=== PATIENT | female | born 1930 | race Caucasian/White ===

== ENCOUNTER 2016-05-06 04:01 | Observation (INO) | payer MEDICARE, BC ==
--- NOTE | ~2016-05-06 | EE ---
Unit #: [id number] #: [id number] Patient: JOSE ALFREDO RIVERA [id number] [address] [address] [id number] I MR#: [id number] NAME: JOSE ALFREDO RIVERA. : 1930 SEX: F STUDY DATE/TIME: 05/06/2016 UNIT: C5B ROOM: 558 STUDY DESCRIPTION: EEG Attending Physician: Shabbir Monae M.D. Referring Physician: Shabbir Monae M.D. Primary Care Physician: Michael Washington D.O. NEURODIAGNOSTICS REPORT EXAM EEG REASON FOR THE STUDY Tremors and hypothermia. EEG DESCRIPTION This is an inpatient, digitally recorded multi-montage adult EEG with leads placed according to the International 10-20 System. Hyperventilation was not done but photic stimulation was attempted. With the patient fully aroused, there is 8-9 Hz posterior dominant alpha rhythm which is symmetric and attenuates with eyes opening. The patient did become drowsy and later on stage 2 sleep was seen. There seemed to be some artifact between T4 and T6, probably maxing out at T4. Throughout the recording, there seemed to be some transients which are worrisome for phase reversing, mostly between T3 and T5. The question is there was artifact on the other side so it is not really sure. Also, they were in transitional stages but definitely some focal irritable foci cannot be absolutely ruled out. Hyperventilation was not done. Photic stimulation was attempted in intermittent stepwise pattern up to the flash frequency of 30 Hz but I did not see any driving, asymmetry or paroxysmal activity. IMPRESSION Very questionable EEG with the possibility of left sided irritable foci. Please clinically correlate with the patient's imaging study and history and go from there. If needed, repeat study may be considered because there was some artifact on the right side. Dictated by... Maurisio Castaneda/kelly Unit #: [id number] #: [id number] Patient: JOSE ALFREDO RIVERA TD: 05/07/2016 07:01 JOB #: [id number] NEURODIAGNOSTICS REPORT X Benjamin Joseph MD NEURODIAGNOSTICS REPORT
--- NOTE | ~2016-05-06 | HP ---
Unit #: [id number] #: [id number] Patient: JOSE ALFREDO RIVERA [id number] [address] [place], [place] [address] [id number] I MR#: [id number] NAME: JOSE ALFREDO RIVERA. ROOM: 89516 Age: 85 Sex: F Admission Date: 05/06/2016 : 1930 Attending Physician: Shabbir Monae M.D. Primary Care Physician: Michael Washington D.O. HISTORY AND PHYSICAL CHIEF COMPLAINT Shaking. 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 She was brought to the emergency room with shaking. The patient stated she was sleeping and got up at 12 o'clock in the morning to go to the bathroom. The patient came back from the bathroom and was not able to sleep secondary to the shaking. It started initially in her upper extremities and then gradually progressed to the lower extremities. The shaking had lasted for more than 30 minutes until the patient came to the emergency room. The patient was found to be hypothermic in the emergency room with a temperature of 96 degrees Fahrenheit. The patient also complains of generalized body pain, mainly in the right chest well under the right breast. The patient also had a fall last and fell on her buttocks, not on the chest. The patient denies any nausea or vomiting. No shortness of breath or abdominal pain. The patient has been admitted for the above reasons. PAST MEDICAL HISTORY 1. History of asthma. 2. Total hip replacement. 3. Anemia. 4. DVTs. PAST SURGICAL HISTORY 1. Hysterectomy. 2. Left hip replacement times two. 3. (1) . 4. Bladder repair. SOCIAL HISTORY The patient lives with her . No history of smoking, alcohol or any illicit drug abuse. FAMILY HISTORY Notable for coronary artery disease. Father had a myocardial infarction. ALLERGIES Opioids, methadone, hydrocodone, codeine, simvastatin, (1) testing. CURRENT MEDICATIONS 1. Coumadin. Unit #: [id number] #: [id number] Patient: JOSE ALFREDO RIVERA 2. Metoprolol. 3. Gabapentin. 4. Diltiazem. 5. Lisinopril. 6. Zolpidem. REVIEW OF SYSTEMS Fourteen point review of systems was performed and only pertinent positive findings are as described above. The remaining are negative. PHYSICAL EXAMINATION GENERAL: The patient is lying on the bed, not in acute distress. VITALS: Temperature at the time of arrival was 96, pulse 62, respiratory rate 15, blood pressure 190/36, oxygen saturation 98% on room air. HEENT: Head atraumatic, normocephalic. Pupils equal and round, reactive to light and accommodation. Extraocular movements are intact. Dry mucous membranes. NECK: Supple. LUNGS: Decreased air entry at the bases. HEART: Regular rate and rhythm. ABDOMEN: Soft. Positive bowel sounds. EXTREMITIES: Positive for trace pedal edema. NEUROLOGIC: Alert, awake and oriented. Decreased range of motion in the extremities. DIAGNOSTIC STUDIES IMAGING: CT of the head shows generalized atrophy, no acute findings. Chest x-ray shows stable cardiomegaly. No acute disease. LABORATORY: Glucose 80, BUN 20, creatinine 0.7, sodium 142, potassium 4.8, chloride 110, bicarb 27, calcium 9.6, amylase 23, lipase 23, BNP 148, ammonia 33, lactic acid 1.1, INR 3.1. White blood cell count 7.4, hemoglobin 12.5, hematocrit 37.6, platelets 263. Flu screen negative. Urinalysis shows trace leukocyte esterase, negative bacteria, negative nitrites. CARDIOVASCULAR: Shows sinus bradycardia at a rate of 55 and p.r.n. interval of 230 with first degree block and QTC 47. ASSESSMENT 1. Hypothermia. 2. Tremors/shakiness. 3. Chest wall pain. PLAN Admit to observation with telemetry. The patient's hypothermia unknown etiology. The patient denies any heating problems at the home. The patient's tremors could be secondary to trazodone that was started recently by primary care physician, Dr. Washington, on Tuesday. The patient denies (2) . We will rule out seizures with EEG and will have neurology consult for any further evaluation. Hold trazodone and hold Coumadin. Repeat labs again in the morning. Continue with pain control. Dictated by Shabbir Monae M.D. Unit #: [id number] #: [id number] Patient: JOSE ALFREDO RIVERA AMA/gz TD: 05/06/2016 11:52 JOB #: [id number] HISTORY AND PHYSICAL X X HISTORY AND PHYSICAL
--- NOTE | ~2016-05-06 | EKG ---
PATIENT: JOSE ALFREDO RIVERA UNIT #: [id number] Ventricular Rate: 55 BPM Atrial Rate: 55 BPM P-R Interval: 230 ms QRS Duration: 82 ms Q-T Interval: 426 ms QTC Calculation(Bezet): 407 ms P [place]: 63 degrees Calculated R [place]: 11 degrees Calculated T [place]: 14 degrees Diagnosis Line: Sinus bradycardia with 1st degree A-V block Diagnosis Line: Low voltage QRS Diagnosis Line: Abnormal ECG Diagnosis Line: No previous ECGs available Diagnosis Line: Confirmed by BENJAMÍN NORTH MD ([id number]) on 05/06/2016 Diagnosis Line: 5:45:52 PM INTERPRETING MD: CAN POZO
--- NOTE | ~2016-05-06 | CR72 ---
[facility] A Service of [facility] RADIOLOGY TEXT RESULTS PATIENT: JOSE ALFREDO RIVERA LOCATION: [facility] 558- : 32 UNIT #: [id number] AGE: [address]: CINDY MCMULLEN MD SEX: F ORDER DR: [id number] [facility] [address] [facility] [place] [facility]. [place], [place] [address] [id number] E MR#: [id number] Acc #: [id number] NAME: JOSE ALFREDO RIVERA. : 1930 SEX: F STUDY DATE/TIME: 05/06/2016 04:29 UNIT: [facility] ROOM: STUDY DESCRIPTION: CR Chest Single View Portable Attending Physician: Stefany Brand M.D. Ordering Physician: Keri Avila M.D. Primary Care Physician: Michael Washington D.O. MEDICAL IMAGING REPORT This report is preliminary unless electronic signature is present EXAM Portable chest 05/06 at 04:29 INDICATIONS Left leg pain with shaking neck pain and lip numbness. Symptoms today. History of hypertension and asthma. FINDINGS AP portable chest is compared with 05/10/2012. Cardiomegaly is stable. Lungs are clear except for granulomatous calcifications. No pneumothorax is seen. Postoperative changes are noted in the right shoulder. IMPRESSION Stable cardiomegaly. No active disease. Dictated by... Michael Sahu Jr., M.D. THIS IS AN ELECTRONICALLY VERIFIED REPORT Michael Sahu Jr., M.D. at 05/06/2016 10:02 PM SHAYLA/penelope TD: 05/06/2016 08:31 JOB #: [id number] MEDICAL IMAGING REPORT COPY
--- NOTE | ~2016-05-06 | CT71 ---
[facility] A Service of [facility] RADIOLOGY TEXT RESULTS PATIENT: JOSE ALFREDO RIVERA LOCATION: [facility] 558-01 : 32 UNIT #: [id number] AGE: [address]: CINDY MCMULLEN MD SEX: F ORDER DR: [id number] [facility] [address] [facility]. [place], [place] [address] [id number] E MR#: [id number] Acc #: [id number] NAME: JOSE ALFREDO RIVERA. : 1930 SEX: F STUDY DATE/TIME: 05/06/2016 05:16 UNIT: TOYIN ROOM: STUDY DESCRIPTION: CT Head Wo Contrast Attending Physician: Stefany Brand M.D. Ordering Physician: Keri Avila M.D. Primary Care Physician: Michael Washington D.O. MEDICAL IMAGING REPORT This report is preliminary unless electronic signature is present EXAM Head CT on 05/06 05:16 INDICATIONS Body shaking that started today with numbness in the left side, weakness and confusion today. This CT exam was performed with one or more of the following radiation dose reduction techniques: automatic exposure control, adjustment of mA and/or kV according to patient size, and iterative reconstruction. FINDINGS Axial images were obtained from base to vertex without contrast. Comparison made with 05/10/2012. There is generalized atrophy. Ventricular size and configuration within normal limits. No acute infarct or hemorrhage is seen. There are no masses. There are no skull fractures. IMPRESSION Generalized atrophy. No acute findings. Dictated by... Michael Sahu Jr., M.D. THIS IS AN ELECTRONICALLY VERIFIED REPORT Michael Sahu Jr., M.D. at 05/06/2016 10:03 PM SHAYLA/penelope TD: 05/06/2016 08:35 JOB #: [id number] MEDICAL IMAGING REPORT [facility] A Service [facility] RADIOLOGY TEXT RESULTS PATIENT: JOSE ALFREDO RIVERA LOCATION: [facility] 558-01 : 32 UNIT #: [id number] AGE: [address]: CINDY MCMULLEN MD SEX: F ORDER DR: FARIBA
--- NOTE | ~2016-05-06 | CO ---
Unit #: [id number] #: [id number] Patient: JOSE ALFREDO RIVERA [id number] [facility]. [place], [place] [address] [id number] I MR#: [id number] NAME: JOSE ALFREDO RIVERA. ROOM: 558 Age: 85 Sex: F Admission Date: 05/06/2016 : 1930 Attending Physician: Oskar Baker M.D. Primary Care Physician: Michael Washington D.O. CONSULTATION REPORT REQUESTING PHYSICIAN Consult is requested per Dr. Monae. REASON FOR CONSULT Bradycardia and some pauses. HISTORY OF PRESENT ILLNESS The patient is an 85-year-old female with a history of DVT secondary to a hypercoagulable state not managed on Coumadin at home, also history of SVT, hypertension, hyperlipidemia, anemia, and mitral valve prolapse. She was brought into the emergency room on May 06, 2016, with complaints of shaking. The patient tells me her initial shaking started in her upper extremities and gradually progressed to the lower extremities. She also had complaints of pain and bilateral lower extremity swelling, which is not normal for her. She did also complain of some dizziness, especially with exertion. She denied chest pain initially but then after further interviewing her she stated that she did have some right-sided pain under her breast that was a sharp and deep pain that radiated all the way through her chest to her back. She had no diaphoresis, no nausea, no vomiting, and no syncope and was mildly short of breath with her chest pain symptoms. Apparently when she was brought to the emergency room, she was found to have a temperature of 96 degrees Fahrenheit. She denies any abdominal pain. No recent flu or fever. No recent change in her weight. PAST MEDICAL HISTORY 1. Anemia. 2. SVT. 3. Mitral valve prolapse. 4. Hypertension. 5. Hyperlipidemia. 6. DVT, managed on Coumadin with labile INRs. PAST SURGICAL HISTORY 1. Hysterectomy. 2. Bilateral hip replacements. 3. Bladder repair. Among other surgeries, she could not list them all. FAMILY HISTORY Includes father who of a OH at the age of 52. SOCIAL HISTORY Unit #: [id number] #: [id number] Patient: JOSE ALFREDO RIVERA She lives with her . She does report decreased tolerance to activity over the last three to four months. She uses a cane when she does leave the home. She is a never smoker, nondrinker, and denies any illicit drug use. ALLERGIES There are several allergies which include: Opioid, methadone, codeine, hydrocodone, hydrochlorothiazide, erythromycin, tuberculin, simvastatin, tramadol, sulfacetamide, propoxyphene. HOME MEDICATIONS 1. Lasix 20 mg daily. 2. Desyrel. 3. Trazodone 50 mg at bedtime. 4. Potassium 10 mEq b.i.d. 5. Cartia XT 240 mg daily. 6. Zestril 20 mg daily. REVIEW OF SYSTEMS A 12-point review of systems was done and as noted above in the HPI. PHYSICAL EXAMINATION VITAL SIGNS: 97.6, 67, respirations 18, blood pressure 119/50. Her weight is 78 kg. Her BMI is 28. GENERAL: She appears an elderly female in no acute distress. HEENT: Head is normocephalic and atraumatic. Pupils equal, round, and reactive to light and accommodation with extraocular movements intact. Oral mucosal membrane is pink but dry. NECK: Supple. No JVD noted. However, on carotid massage she did have a 2 to 3 second pause. LUNGS: Clear to auscultation but are diminished in the bases. CARDIOVASCULAR: She is in a regular rate and rhythm. S1, S2 noted. Distal heart sounds due to body habitus. ABDOMEN: Soft with bowel sounds noted and her belly is nontender. EXTREMITIES: No edema. One plus palpable pedal pulses. SKIN: Paler. NEUROLOGIC: She is alert and oriented, pleasant and cooperative. DIAGNOSTIC STUDIES LABORATORY: Sodium 138, potassium 4.8, chloride 107, CO2 of 23, BUN 16, creatinine 0.7, glucose 76, GFR greater than 60, calcium 9.1. Amylase and lipase are unremarkable. They are both 23. Troponin was 0.01. BNP was 148. PT was 24.5, INR 2.3. In the ER, point of care troponin was then 0.05 and a CK-MB was 2.8. Hemoglobin 11.4, hematocrit 35.4, WBC 6.5, platelet count 244,000. Influenza A and B were both negative. Tox screen was all negative. UA did show trace leukocyte but otherwise was unremarkable. IMAGING: Includes a CT of the head, May 06, 2016: Generalized atrophy with no acute findings. MRI of the brain on May 06, 2016, did show some chronic changes but no acute findings. Chest x-ray on May 06, 2016, showed stable cardiomegaly with no active disease. CARDIOVASCULAR: EKG on May 06, 2016, showed sinus amy with a first Unit #: [id number] #: [id number] Patient: JOSE ALFREDO RIVERA L degree AV block and low voltage QRS complexes. Ventricular rate was 55 beats per minute and a QTc was 407. IMPRESSION 1. Carotid sinus hypersensitivity. 2. Bradycardia with some 3 second pauses during carotid massage. 3. History of supraventricular tachycardia. 4. History of hypercoagulability state with history of deep venous thrombosis. 5. Hypertension. 6. Hyperlipidemia. 7. Right anterior chest pain, atypical for coronary disease. 8. Hypothermia on admission, now improved. PLAN Cardiology has been asked to see her for slow heart rate. She had a 3 to 6 second pause which was only noted during carotid massage and during her sleep. She is on Cartia at home which will be discontinued. We will do a Lexiscan Cardiolite stress test today to rule her out for an acute coronary syndrome. Her troponin has been negative. We will trend that. Keep NPO until her stress test is complete and check a 2D echo. We could try flecainide in order to control her supraventricular tachycardia but for now we will withhold due to her slowing heart rate. We will check labs in the morning including a BMP and fasting lipids. Further plan per Dr. Chatman. Thank you for this consultation. We will continue to follow her through her hospitalization. Dictated by... Rashida Son APRN for Maurisio Pizarro TD: 05/07/2016 16:12 JOB #: [id number] CONSULTATION REPORT X X CONSULTATION REPORT
--- NOTE | ~2016-05-06 | MR18 ---
[facility] A Service of [facility] RADIOLOGY TEXT RESULTS PATIENT: JOSE ALFREDO RIVERA LOCATION: [facility] : 32 UNIT #: [id number] AGE: [address]: Oskar Baker MD SEX: F ORDER DR: [id number] [facility] [address] [facility]. [place], [place] [address] [id number] I MR#: [id number] Acc #: [id number] NAME: JOSE ALFREDO RIVERA. : 1930 SEX: F STUDY DATE/TIME: 05/06/2016 20:32 UNIT: [facility] ROOM: [facility] STUDY DESCRIPTION: MR Brain Wo Contrast Attending Physician: Shabbir Monae M.D. Ordering Physician: Benjamin Joseph M.D. Primary Care Physician: Michael Washington D.O. MRI CENTER REPORT This report is preliminary unless electronic signature is present. EXAM MRI brain without contrast. HISTORY Left-side weakness for 4 days. FINDINGS MRI brain was performed without contrast. There is no recent ischemia or infarct. Mild generalized cerebral cortical atrophy and minimal chronic ischemic changes in the periventricular white matter bilaterally. No midline shift or ventricular dilatation or extraaxial fluid collection. No focal atrophy. Subcentimeter, round hypointense extraaxial mass along the lateral superior right vertex corresponds to the calcified rounded mass on CT brain earlier today and this could be a densely calcified meningioma. IMPRESSION No acute findings. No recent ischemia or infarct. Minimal chronic ischemic changes in the deep white matter bilaterally. Dictated by... David Andino M.D. THIS IS AN ELECTRONICALLY VERIFIED REPORT David Andino M.D. at 05/07/2016 11:27 PM DFL/tong TD: 05/07/2016 09:06 JOB #: [id number] [facility] C[facility] REPORT [facility] A Service of [facility] RADIOLOGY TEXT RESULTS PATIENT: JOSE ALFREDO RIVERA LOCATION: [facility] 55 : 32 UNIT #: [id number] AGE: [address]: Oskar Baker MD SEX: F ORDER DR: FARIBA
--- NOTE | ~2016-05-06 | DS ---
Unit #: [id number] #: [id number] Patient: JOSE ALFREDO RIVERA [id number] [address] [place], [place] [address] [id number] I MR#: [id number] NAME: JOSE ALFREDO RIVERA. ROOM: 55 Age: 85 Sex: F Admission Date: 05/06/2016 : 1930 Discharge Date: 05/08/2016 Attending Physician: Oskar Baker M.D. Primary Care Physician: Michael Washington D.O. DISCHARGE SUMMARY PRIMARY DIAGNOSIS Hypothermia, resolved, cause undetermined. SECONDARY DIAGNOSES 1. Bradycardia related to calcium channel blockers. 2. Nonepileptic tremors associated with hypothermia. 3. Chest pain, noncardiac. HOSPITAL COURSE The patient was admitted with issues with shaking. Her initial temperature was listed at 96 degrees Fahrenheit. Followup temperature was listed at 93.2 and followup two hours after that was 97.4, although it is unclear to me whether the patient had received perhaps bear hugger therapy in the intervening time after presentation. Ultimately, the patient was taken off the bear hugger and has maintained her temperatures in a range of 97.0 to 98.3 over a period of 36 hours prior to discharge. Patient evaluation in the hospital included TSH, lipid profile, B12, folate, complete metabolic profile, amylase and lipase, single troponin, CBC, influenza A and B, urine drug screen and urinalysis, as well as EEG, neurology evaluation, echocardiogram, cardiac stress test and cardiology evaluation. Notably, the patient's evaluation did not include a cortisol level and, if recurrent hypothermia or other issues that might be suggestive of adrenal insufficiency were to show up as outpatient, cortisol testing would be indicated. The patient's EEG was suggestive of some possible left-sided irritable foci but, when correlated clinically by the neurologist, no need for antiepileptic medication was felt to be necessary. Seizures were felt to be unlikely and no Neurology followup is felt to be needed at this point. The patient's cardiology evaluation was essentially negative. The patient did have some mild episodes of bradycardia and she was taken off of her calcium channel stew while here. It would be okay to restart this at a lower dose after followup with her regular data warehouse developer if this is felt to be indicated per the Cardiology team. The only contributing factor we could find to attribute to the patient's new symptoms was a recently initiation on trazodone, although this would be a rare side effect for trazodone. No other causative factors were found. DISCHARGE DISPOSITION To home with home health. Unit #: [id number] #: [id number] Patient: JOSE ALFREDO RIVERA DISCHARGE ACTIVITY Ad alexys. DISCHARGE DIET A 2,000 mg sodium, Heart Healthy diet. DISCHARGE FOLLOWUP With her PCP in two to four weeks and follow up with her regular data warehouse developer, Dr. Magana, in two to six weeks. DISCHARGE MEDICATIONS 1. Coumadin. She is to resume her home dose which is 2.5 mg daily except on Sundays and when she takes 5 mg. 2. Lasix 20 mg p.o. daily. 3. Lisinopril 20 mg p.o. daily. 4. Potassium chloride 10 mEq p.o. b.i.d. 5. Gabapentin 400 mg p.o. b.i.d. which she reports as a longstanding home med. Dictated by... Alcides Hernandez M.D. NINO/gene TD: 05/10/2016 08:01 JOB #: [id number] DISCHARGE SUMMARY X Alcides Hernandez MD X DISCHARGE SUMMARY
--- NOTE | ~2016-05-06 | ST ---
Unit #: [id number] #: [id number] Patient: JOSE ALFREDO RIVERA [id number] [facility] [place], [place] [address] [id number] I MR#: [id number] NAME: JOSE ALFREDO RIVERA : 1930 SEX: F STUDY DATE/TIME: 05/07/2016 UNIT: C5B ROOM: 558 STUDY DESCRIPTION: Attending Physician: Oskar Baker M.D. Primary Care Physician: Michael Washington D.O. CARDIOLOGY REPORT EXAM EKG portion of Lexiscan Cardiolite stress test. REASON FOR EXAM Right-sided chest pain and bradycardia. FINDINGS Baseline EKG was sinus rhythm with a first-degree AV block. A total of 0.4 mg of Lexiscan was injected per protocol followed by Cardiolite. Resting heart rate was 64 beats per minute, alma to a maximum heart rate of 95 beats per minute. This represented 69% of the maximal age-predicted heart rate. The resting blood pressure was 133/78, during the procedure dropped to 100/62. The patient did have some symptoms of lightheadedness which resolved after four minutes in recovery. There were no ST changes or arrhythmias. No ectopy noted. Test was stopped due to protocol completion. This was a negative test. There were no obvious ST segment changes. Patient's only symptom included lightheadedness and that was secondary probably to a drop in her blood pressure from 133/78 down to 100/62. This improved after four minutes. There were no arrhythmias noted. Please correlate with Cardiolite imaging. Dictated by... Rashida Son APRN for Maurisio Braun TD: 05/07/2016 10:35 JOB #: [id number] CARDIOLOGY REPORT X CARDIOLOGY REPORT
--- NOTE | ~2016-05-06 | TH ---
Unit #: [id number] #: [id number] Patient: JOSE ALFREDO RIVERA [id number] [facility]. [address] [address] [id number] MR#: [id number] NAME: JOSE ALFREDO RIVERA : 1930 SEX: F STUDY DATE/TIME: 05/07/2016 UNIT: [id number] ROOM: 558 STUDY DESCRIPTION: Attending Physician: Oskar Baker M.D. Primary Care Physician: Michael Washington D.O. CARDIOLOGY REPORT EXAM Lexiscan Cardiolite stress test, nuclear portion. PROCEDURE Using technetium 99m labeled Cardiolite, rest and stress SPECT images were obtained. Multiple SPECT images were obtained in various views including horizontal and vertical long axis and short axis views of the left ventricle. Images were obtained by gated SPECT method. The patient was administered 10.9 mCi of Cardiolite at rest. The patient was administered 30.5 mCi of Cardiolite after Lexiscan infusion was completed. On the stress images, there is normal perfusion noted. The rest images show normal perfusion. Comparing rest and stress images, there is no stress-induced ischemia noted. The left ventricular ejection fraction is calculated to be 72%. There is no focal wall motion abnormality seen. The left ventricular size is small. CONCLUSION 1. No stress-induced ischemia noted. 2. The left ventricular ejection fraction is calculated to be 72%. 3. There is no focal wall motion abnormality seen. 4. The left ventricular size is small. 5. Normal Lexiscan Cardiolite stress test. Dictated by... Maurisio Braun TD: 05/07/2016 16:03 JOB #: [id number] CARDIOLOGY REPORT X Kena Sargent MD <ELECTRONICALLY SIGNED> 09/18/16 1429 CARDIOLOGY REPORT
--- NOTE | ~2016-05-06 | CO ---
Unit #: [id number] #: [id number] Patient: JOSE ALFREDO RIVERA L [id number] [facility] [address] [facility]. [place], [place] [address] [id number] MR#: [id number] NAME: JOSE ALFREDO RIVERA ROOM: 558 Age: 85 Sex: F Admission Date: 05/06/2016 : 1930 Attending Physician: Shabbir Monae M.D. Primary Care Physician: Michael Washington D.O. Consultation Date: 05/06/2016 CONSULTATION REPORT REASON FOR CONSULTATION Tremor. PATIENT IDENTIFICATION This is an 85-year-old, right handed, female evaluated in ED room 12 and also in room 558 at [facility]. SOURCE OF INFORMATION Obtained from the patient, the patient's as well as medical record. 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 The patient states that she was in her usual state of health until Tuesday of this week. She states that she has been having some trouble with keeping her INR within normal limits and has been having that checked frequently. She states that she went to her PCPs office on Tuesday and was started on a "sleeping pill." She states that since then she has had significant lethargy and fatigue and has been sleeping a lot but denies any illness or injury, fever or chills. She denies any stroke-like symptoms over the last several days. She states that she continued to sleep through the day on Tuesday and last night around midnight woke up feeling "hot" and states that she was shaking all over. Her states, however, she was awake and then it was more tremulous rather than generalized shaking or tonic clonic movements or any rigidity. There was no loss of consciousness or loss of awareness. No postictal state. She states also that she noticed that she was having some numbness and tingling on her upper lip and on her left arm and left leg and states that her left arm and left leg continued to feel "heavy." She states that she has chronic leg weakness but states that it is worse since last night. She was brought to the ER where she was found to be hypothermic and had an INR of 3.1. She was placed on a Julia hugger but continues to have problems with her temperature. Of note, as far as the shaking, she states that she was not able to sleep because she was shivering and shaking too much. She denies any focal shaking. Again, denies any loss of consciousness. She complains of generalized pain also under her right chest and right breast. She is being admitted with further evaluation of all of the above with neurology and cardiology consults. She does admit that she had a fall last and fell on her bottom. She states that she has not had any pain since then but reports that she has chronic low Unit #: [id number] #: [id number] Patient: JOSE ALFREDO RIVERA back pain and left leg pain and weakness. She states that she uses a cane at baseline. She denies any other associated symptoms, any double vision, blurry vision, loss of vision, headache, nausea, vomiting, abdominal pain, shortness of air or palpitations. She had a head CT done without contrast in the ER that shows generalized atrophy but no acute findings. She had a chest x-ray that shows stable cardiomegaly but no active disease. PAST MEDICAL HISTORY 1. Asthma. 2. Anemia. 3. 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 4. DVT. 5. Hypertension. 6. Hypercoagulable state. 7. Hysterectomy. 8. Bladder repair. 9. Angina pectoris. 10. Paroxysmal atrial tachycardia. 11. History of atrial fibrillation. 12. GERD. 13. Osteoarthritis. 14. Right total hip replacement. 15. Gastritis. 16. DJD. 17. Orthostatic hypotension. ALLERGIES Opioids, codeine, hydrocodone, propoxyphene, hydrochlorothiazide, erythromycin base, tuberculin, simvastatin, tramadol, sulfacetamide. FAMILY HISTORY Noncontributory given her stated age of 85. SOCIAL HISTORY The patient is and lives with her . She denies any history of tobacco use, alcohol use or illicit drug use currently or in the past. MEDICATIONS Home medications include: 1. Lasix 20 mg p.o. daily. 2. Desyrel 50 mg p.o. q. h.s. 3. Potassium chloride 10 mEq p.o. b.i.d. 4. Cartia XT 240 mg p.o. daily. 5. Zestril 20 mg p.o. daily. REVIEW OF SYSTEMS Twelve point review of systems attempted. The patient has multiple complaints. Please see HPI for further review of systems. PHYSICAL EXAMINATION VITAL SIGNS: Temperature 96.2, pulse 65, respirations 18, blood pressure 145/60. Blood pressure in the ER on arrival was 180/136. Oxygen saturation 98%. Height 5 feet 5 inches, weight 172 pounds. BMI 28. NEUROLOGICAL EXAM: The patient is currently awake. She is alert and oriented to person, place and time. She is oriented to events. She has no right/left confusion, no finger agnosia. No aphasia or dysarthria or apraxia. CRANIAL NERVE EXAM: She demonstrates full ferris of vision. Eyes are Unit #: [id number] #: [id number] Patient: JOSE ALFREDO RIVERA conjugate without ptosis or nystagmus. Extraocular movements are intact. Sensation of the face and scalp is intact. Strength of muscles of facial expression is intact. Hearing is intact to conversation. Tongue is midline, uvula is midline. Palate elevation is normal. Head turning and shoulder shrug was unremarkable. Neck is supple. MOTOR EXAM: She demonstrates essentially equal upper extremity strength. No major appreciable weakness on the left compared to the right though questionable mild asymmetry. In the lower extremities, she does have some left lower extremity weakness. She does drag her left lower extremity in the bed. She appeared to be more 3 out of 5 on the left lower extremity but she is able to ambulate to the bathroom, possibly 4- out of 5. Right lower extremity appears to be intact. SENSORY EXAM: Intact to soft touch and pinprick sensation. No extinction appreciated. GAIT: As described above. ROMBERG: Deferred. REFLEXES: Unable to elicit. Toes are equivocal. COORDINATION: No past-pointing seen. DIAGNOSTIC STUDIES IMAGING: Please see above. LABORATORY: Urine tox screen negative. Influenzae A and B negative. BNP is 148. BMP negative. Lactic acid 1.1, ammonia 33. PT 33.5, INR 3.1. Urinalysis unremarkable other than trace leukocytes. Culture not indicated. CBC unremarkable other than RDW of 15.6. Troponin on arrival is less than 0.05. IMPRESSION 1. Hypothermia. 2. Tremor: Appears to be in the setting of hypothermia with nothing to suggest acute primary neurologic etiology given description and history. Appears resolved at this time. No tremors observed currently. 3. Left sided weakness and paresthesia: Appears to be acute on chronic, worsening. 4. Chest pain. 5. Mildly supratherapeutic INR. 6. Chronic left leg weakness and back pain, worse acutely. PLAN Discussed the case with Dr. Joseph who has evaluated the patient. There has been no report of active seizure or activity and the EEG was ordered and is pending. She has had no loss of consciousness and shaking was generalized, again, with no loss of consciousness or confusion. We will go ahead and request MRI of the brain and request lab work including B12, folate and TSH. The patient does have an obvious focal weakness and the Unit #: [id number] #: [id number] Patient: JOSE ALFREDO RIVERA patient states it is worse from her baseline. She did have an injury last week and does have known chronic low back pain and history of hip replacement. However, she states that it is worse, sudden onset, and reports also facial involvement and arm involvement. Therefore, MRI is indicated. Further recommendations to be made pending workup of further clinical course. Please call for any questions or issues. The patient was seen by Dr. Joseph and evaluated by him and he agrees to above. We will follow along with you. We thank you very much for allowing us to assist in the care of this patient. Dictated by... Laura Ortiz A.P.R.N. for Maurisio Castaneda/kelly TD: 05/07/2016 08:45 JOB #: [id number] CONSULTATION REPORT X Laura Ortiz APRN X CONSULTATION REPORT
[~2016-05-06 04:01] MED LIST: AMBIEN10 MG; BUMEX; CALCIUM 500 + D1 TAB; CARDIZEM; COUMADIN; DILTIAZEM 24HR360 MG PO; GABAPENTIN400 M2 PO; LISINOPRIL20 MG PO; METOPROLOL SUCC50 MG PO; NEURONTIN300 MG; ORUVAIL; PRINIVIL20 M1; PROTONIX PO; TOPROL XL; WARFARIN SODIUM6 MG PO; ZOLPIDEM TARTRA10 MG PO
[2016-05-06 04:39] LABS: POC - CKMB 2.8 ng/mL (0.0-7.9); POC - TROPONIN <0.05 ng/mL (<=0.05)
[2016-05-06 05:10] LABS: URINE SOURCE CLEAN CATCH
[2016-05-06 05:19] LABS: URINE APPEARANCE CLEAR; URINE BILIRUBIN NEG (NEG); URINE BLOOD NEG (NEG); URINE COLOR YELLOW; URINE GLUCOSE NEG (NEG); URINE KETONE NEG (NEG); URINE LEUKOCYTE ESTERASE TRACE (NEG); URINE NITRATE NEG (NEG); URINE PROTEIN NEG (NEG); URINE SPECIFIC GRAVITY 1.011 (1.003-1.035); URINE UROBILINOGEN 0.2 MG/DL (NEG)
[2016-05-06 05:24] LABS: BASOPHIL% 0.6 % (0-2.5); EOSINOPHIL# 0.1 X10e3 (0-0.7); EOSINOPHIL% 1.1 % (0.0-7.0); HEMATOCRIT 37.6 % (35.0-45.0); HEMOGLOBIN 12.5 gm/dL (12.0-16.0); LYMPHOCYTE# 1.4 X10e3 (1.0-3.5); LYMPHOCYTE% 19.3 % (17.0-45.0); MEAN CELL VOLUME 91.1 FL (83-96); MEAN CORPUSCULAR HEMOGLOBIN 30.3 PG (28-34); MEAN CORPUSCULAR HGB CONC 33.3 g/dL (30-36); MEAN PLATELET VOLUME 8.3 FL (6.5-11.5); MONOCYTE# 0.6 X10e3 (0-1.0); MONOCYTE% 8.6 % (3.0-12.0); NEUTROPHIL# 5.2 X10e3 (1.5-7.1); NEUTROPHIL% 70.4 % (40-75); PLATELET COUNT 263 X10e3 (140-420); RED BLOOD COUNT 4.13 X10e (3.90-5.30); RED CELL DISTRIBUTION WIDTH 15.6 % (11.0-15.5); WHITE BLOOD COUNT 7.4 X10e3 (4.0-10.5)
[2016-05-06 05:28] LABS: DIFF IND NO
[2016-05-06 05:37] LABS: URINE SQUAMOUS EPITHELIAL CELL FEW /[HPF]; UWBCS1 AUWI 0-2 (0-5)
[2016-05-06 05:38] LABS: CULTURE INDICATED? NO
[2016-05-06 05:38] LABS: INR 3.1; PROTHROMBIN TIME (PATIENT) 33.5 SECONDS (9.6-11.5)
[2016-05-06 05:50] LABS: AMYLASE 23 U/L (0-46); BLOOD UREA NITROGEN 20 mg/dL (9-23); BUN/CREATININE RATIO 28.57; CALCIUM SERUM 9.6 mg/dL (8.4-10.2); CARBON DIOXIDE 27 mmol/L (22-31); CHLORIDE 110 mmol/L (100-111); CREATININE SERUM 0.7 mg/dL (0.6-1.4); GLOM FILT RATE Estimated ABOVE60 mL/min (>60); GLUCOSE FASTING 80 mg/dL (70-110); LIPASE 23 U/L (22-51); POTASSIUM 4.8 mmol/L (3.5-5.1); SODIUM 142 mmol/L (135-145)
[2016-05-06 06:52] LABS: INFLUENZA A NEG (NEG); INFLUENZA B NEG (NEG)
[2016-05-06] MEDS ORDERED: LASIX20 MG PO (09:47)
[2016-05-06] MEDS ORDERED: POTASSIUM CHLO10 ME1 PO (09:48)
[2016-05-06] MEDS ORDERED: DESYREL50 MG PO (09:48)
[2016-05-06] MEDS ORDERED: CARTIA XT240 M1 PO (09:49)
[2016-05-06] MEDS ORDERED: LISINOPRIL PO (09:52)
[2016-05-06 12:14] LABS: AMPHETAMINE NEG (NEG); BARBITURATES NEG (NEG); BENZODIAZEPINES NEG (NEG); COCAINE NEG (NEG); MARIJUANA NEG (NEG); OPIATES NEG (NEG); TRICYCLIC ANTIDEPRESSANTS NEG (NEG); U METHADONE NEG (NEG)
[2016-05-06] MEDS ORDERED: COUMADIN PO (15:03)
[2016-05-06 15:53] LABS: FOLATE (FOLIC ACID) 21.8 ng/mL (>5.8)
[2016-05-07 05:50] LABS: HEMATOCRIT 35.9 % (35.0-45.0); HEMOGLOBIN 11.4 gm/dL (12.0-16.0); MEAN CELL VOLUME 92.1 FL (83-96); MEAN CORPUSCULAR HEMOGLOBIN 29.3 PG (28-34); MEAN CORPUSCULAR HGB CONC 31.8 g/dL (30-36); MEAN PLATELET VOLUME 8.3 FL (6.5-11.5); RED BLOOD COUNT 3.9 X10e (3.90-5.30); RED CELL DISTRIBUTION WIDTH 15.9 % (11.0-15.5); WHITE BLOOD COUNT 6.5 X10e3 (4.0-10.5)
[2016-05-07 06:10] LABS: INR 2.3; PROTHROMBIN TIME (PATIENT) 24.5 SECONDS (9.6-11.5)
[2016-05-07 06:36] LABS: BLOOD UREA NITROGEN 16 mg/dL (9-23); BUN/CREATININE RATIO 22.85; CALCIUM SERUM 9.1 mg/dL (8.4-10.2); CARBON DIOXIDE 23 mmol/L (22-31); CHLORIDE 107 mmol/L (100-111); CREATININE SERUM 0.7 mg/dL (0.6-1.4); GLOM FILT RATE Estimated ABOVE60 mL/min (>60); GLUCOSE FASTING 76 mg/dL (70-110); POTASSIUM 4.8 mmol/L (3.5-5.1); SODIUM 138 mmol/L (135-145)
[2016-05-08 05:16] LABS: HEMATOCRIT 37.7 % (35.0-45.0); HEMOGLOBIN 12.4 gm/dL (12.0-16.0); MEAN CORPUSCULAR HEMOGLOBIN 30.1 PG (28-34); MEAN CORPUSCULAR HGB CONC 32.8 g/dL (30-36); MEAN PLATELET VOLUME 8.1 FL (6.5-11.5); RED BLOOD COUNT 4.1 X10e (3.90-5.30); RED CELL DISTRIBUTION WIDTH 15.8 % (11.0-15.5); WHITE BLOOD COUNT 6.9 X10e3 (4.0-10.5)
[2016-05-08 06:35] LABS: ALBUMIN SERUM 3.7 g/dL (3.5-5.0); ALKALINE PHOSPHATASE 108 U/L (32-92); ALT (SGPT) 44 U/L (10-40); AST (SGOT) 53 U/L (10-42); BILIRUBIN,TOTAL 0.7 mg/dL (0.2-2.0); BLOOD UREA NITROGEN 24 mg/dL (9-23); CALCIUM SERUM 9.3 mg/dL (8.4-10.2); CARBON DIOXIDE 23 mmol/L (22-31); CHLORIDE 108 mmol/L (100-111); CHOLESTEROL 306 mg/dL (0-200); CREATININE SERUM 0.8 mg/dL (0.6-1.4); GLOM FILT RATE Estimated ABOVE60 mL/min (>60); GLUCOSE FASTING 74 mg/dL (70-110); HDL CHOLESTEROL 70 mg/dL (35-95); LDL/HDL RATIO 3 RATIO (0-4); POTASSIUM 4.4 mmol/L (3.5-5.1); PROTEIN TOTAL SERUM 6.5 g/dL (6.0-8.3); SODIUM 137 mmol/L (135-145); TRIGLYCERIDES 119 mg/dL (10-160)
[2016-05-08 06:36] LABS: LDL CHOLESTEROL 212 mg/dL ([, -130])
[2016-05-08] MEDS ORDERED: GABAPENTIN400 M2 PO (10:53)
== END 2016-05-08 12:56 | disposition home or self-care (01) ==
LOC: CED 04:01 → CEDOF 10:34 → C5B 13:39
PROVIDERS: Emergency Medicine; Internal Medicine; Nurse Practitioner; Psychiatry & Neurology Neurology; Student in an Organized Health Care Education/Training Program
DX: T68.XXXA Hypothermia, initial encounter (principal); G90.01 Carotid sinus syncope; R00.1 Bradycardia, unspecified; G25.2 Other specified forms of tremor; R53.1 Weakness; R20.9 Unspecified disturbances of skin sensation; R07.89 Other chest pain; I08.1 Rheumatic disorders of both mitral and tricuspid valves; E78.5 Hyperlipidemia, unspecified; Z96.642 Presence of left artificial hip joint; Z82.49 Family history of ischemic heart disease and other diseases of the circulatory system; Z88.5 Allergy status to narcotic agent; Z86.718 Personal history of other venous thrombosis and embolism; Z79.01 Long term (current) use of anticoagulants; Z86.79 Personal history of other diseases of the circulatory system; Z90.710 Acquired absence of both cervix and uterus
CPT/HCPCS: 70450; 70551; 71010; 78452; 80048; 80053; 80061; 80307; 81003; 82140; 82150; 82553; 82607; 82746; 83605; 83690; 83880; 84443; 84484; 85025; 85027; 85610; 87804; 93005; 93017; 93306; 94760; 95816; 96374; 97116; 97162; 99285; A9500; G0378; G8978-GP; G8979-GP; J2060; J2785